=== PATIENT | male | born 1985 ===

== ENCOUNTER 2020-07-20 18:45 | Inpatient (IN) ==
[2020-07-20 19:50] LABS: Urine Appearance Clear; Urine Bilirubin Negative (Negative); Urine Blood Negative (Negative); Urine Color Yellow; Urine Glucose Negative (Negative); Urine Ketones Negative (Negative); Urine Nitrite Negative (Negative); Urine Protein Negative (Negative); Urine Specific Gravity 1.011 (1.002-1.030); Urine Urobilinogen Negative (Negative)
[2020-07-20 19:51] LABS: ABS Basophils 0.1 10^3/ul (0-0.2); ABS Eosinophils 0.4 10^3/ul (0-0.6); ABS Lymphocytes 1.9 10^3/ul (1.0-4.8); ABS Monocytes 0.8 10^3/ul (0-0.8); ABS Neutrophils 3.6 10^3/ul (1.5-7.7); Eosinophil % 6.3 %; Hematocrit 41 % (42-52); Lymphocyte % 28.2 %; Mean Corpuscular HGB Conc 34 g/dL (31-36); Mean Corpuscular Hemoglobin 30 pg (27-31); Mean Corpuscular Volume 89 fL (80-94); Mean Platelet Volume 7.9 fL (7.4-10.4); Platelet Count 252 10^3/uL (150-450); Red Blood Count 4.61 10^6 /uL (4.18-5.48); Red Cell Distribution Width 13 % (10-15); White Blood Count 6.7 10^3/uL (3.5-10.8)
[2020-07-20 20:07] LABS: ALT 154 U/L (7-52); AST 85 U/L (13-39); Albumin 4.6 g/dL (3.2-5.2); Albumin/Globulin Ratio 1.8 (1-3); Alkaline Phosphatase 76 U/L (34-104); Anion Gap 7 mmol/L (2-11); Blood Urea Nitrogen 13 mg/dL (6-24); CO2 Carbon Dioxide 28 mmol/L (22-32); Calcium 9.6 mg/dL (8.6-10.3); Chloride 102 mmol/L (101-111); EGFR African American 111.9 (>60); EGFR Non-African American 92.5 (>60); Globulin 2.5 g/dL (2-4); Glucose 104 mg/dL (70-100); Potassium 4.1 mmol/L (3.5-5.0); Sodium 137 mmol/L (135-145); Total Protein 7.1 g/dL (6.4-8.9)
[2020-07-20 20:16] LABS: Urine Benzodiazepine Screen Presumptive Positive (None Detect); Urine Cannabinoids Screen None Detected (None Detect); Urine Opiates Screen None Detected (None Detect)
[2020-07-20 20:27] LABS: Acetaminophen < 15 mcg/mL; Alcohol, S < 10 mg/dL (<10); Salicylate < 2.50 mg/dL (<30)
[2020-07-20 20:42] LABS: TSH Ultra Thyroid Stim Horm 2.31 mcIU/mL (0.34-5.60)
[2020-07-21] MEDS ORDERED: Al Hydrox/Mg Hydrox/Simet LIQ 30 ML UDC PO PRN (00:50)
[2020-07-21] MEDS ORDERED: DIPHENHYDRAMINE 50 MG PO PRN (00:51)
[2020-07-21] MEDS ORDERED: CHLORPROMAZINE 50 MG PO (00:51)
[2020-07-21] MEDS ORDERED: Nicotine GUM 2MG FRUIT FLAVOR PO PRN (01:00)
[2020-07-21] MEDS: Nicotine PATCH 14 MG/24 HR PATCH TRANSDERM SCH (09:28)
[2020-07-21] MEDS: Vitamin THERAPEUTIC TAB PO SCH (09:28)
[2020-07-21] MEDS: LORazepam PO 0-6 for WAM protocol PO SCH (18:13)
[2020-07-21] MEDS: Buprenorp/Nalox 8-2 MG FILM SL FILM SCH (20:52)
[2020-07-22 07:04] LABS: HDL Cholesterol 46.2 mg/dL
[2020-07-22] MEDS: Vitamin THERAPEUTIC TAB PO SCH (09:04)
[2020-07-22] MEDS: Thiamine TAB* 100 MG TAB DAILY (@ T+1) PO SCH (09:05)
[2020-07-22] MEDS: Buprenorp/Nalox 8-2 MG FILM SL FILM SCH ×2 (09:05→21:23)
[2020-07-22] MEDS: Nicotine PATCH 14 MG/24 HR PATCH TRANSDERM SCH (09:07)
[2020-07-22] MEDS: LORazepam PO 0-6 for WAM protocol PO SCH (15:36)
[2020-07-23] MEDS: Nicotine PATCH 14 MG/24 HR PATCH TRANSDERM SCH (09:15)
[2020-07-23] MEDS: Vitamin THERAPEUTIC TAB PO SCH (09:16)
[2020-07-23] MEDS: Thiamine TAB* 100 MG TAB DAILY (@ T+1) PO SCH (09:16)
[2020-07-23] MEDS: Buprenorp/Nalox 8-2 MG FILM SL FILM SCH ×2 (09:17→19:52)
[2020-07-24] MEDS: Buprenorp/Nalox 8-2 MG FILM SL FILM SCH ×2 (08:32→19:08)
[2020-07-24] MEDS: Thiamine TAB* 100 MG TAB DAILY (@ T+1) PO SCH (08:33)
[2020-07-24] MEDS: Vitamin THERAPEUTIC TAB PO SCH (08:33)
[2020-07-24] MEDS: Nicotine PATCH 14 MG/24 HR PATCH TRANSDERM SCH (08:33)
[2020-07-25] MEDS: Vitamin THERAPEUTIC TAB PO SCH (08:20)
[2020-07-25] MEDS: Thiamine TAB* 100 MG TAB DAILY (@ T+1) PO SCH (08:20)
[2020-07-25] MEDS: Buprenorp/Nalox 8-2 MG FILM SL FILM SCH ×2 (08:20→20:50)
[2020-07-25] MEDS: Nicotine PATCH 14 MG/24 HR PATCH TRANSDERM SCH (10:28)
[2020-07-26] MEDS: Vitamin THERAPEUTIC TAB PO SCH (08:06)
[2020-07-26] MEDS: Buprenorp/Nalox 8-2 MG FILM SL FILM SCH ×2 (08:06→20:09)
[2020-07-26] MEDS: Thiamine TAB* 100 MG TAB DAILY (@ T+1) PO SCH (08:06)
[2020-07-26] MEDS: Nicotine PATCH 14 MG/24 HR PATCH TRANSDERM SCH (08:31)
[2020-07-27] MEDS: Buprenorp/Nalox 8-2 MG FILM SL FILM SCH ×2 (08:26→20:29)
[2020-07-27] MEDS: Thiamine TAB* 100 MG TAB DAILY (@ T+1) PO SCH (08:28)
[2020-07-27] MEDS: Vitamin THERAPEUTIC TAB PO SCH (08:28)
[2020-07-27] MEDS: Nicotine PATCH 14 MG/24 HR PATCH TRANSDERM SCH (08:30)
[2020-07-28] MEDS: Thiamine TAB* 100 MG TAB DAILY (@ T+1) PO SCH (07:55)
[2020-07-28] MEDS: Vitamin THERAPEUTIC TAB PO SCH (07:55)
[2020-07-28] MEDS: Buprenorp/Nalox 8-2 MG FILM SL FILM SCH ×2 (07:55→19:54)
[2020-07-28] MEDS: Nicotine PATCH 14 MG/24 HR PATCH TRANSDERM SCH (07:58)
[2020-07-29] MEDS: Vitamin THERAPEUTIC TAB PO SCH (08:13)
[2020-07-29] MEDS: Thiamine TAB* 100 MG TAB DAILY (@ T+1) PO SCH (08:14)
[2020-07-29] MEDS: Buprenorp/Nalox 8-2 MG FILM SL FILM SCH (08:14)
[2020-07-29] MEDS: Nicotine PATCH 14 MG/24 HR PATCH TRANSDERM SCH (08:15)
[2020-07-29 09:28] VITALS: BP 129/85
== END 2020-07-29 13:00 | disposition home or self-care (01) | DRG 751 ==
LOC: ED 18:45 → BSU 23:57
PROVIDERS: ADMIT Psychiatry & Neurology Addiction Psychiatry; ATTEND Psychiatry & Neurology Psychiatry